=== PATIENT | male | born 1975 | race Caucasian/White ===

== ENCOUNTER 2018-12-19 22:56 | Emergency (ER) | payer SELFPAY, OTHER ==
[2018-12-20] MEDS: FAMOTIDINE 20 MG TAB PO (00:29)
[2018-12-20] MEDS: LIDOCAINE/MYLANTA 40 ML BTL PO (00:29)
[2018-12-20] MEDS: BELLADONNA/PHENOBARBITAL TAB PO (01:17)
[2018-12-20 01:18] LABS: ADD MAN DIFF? NO
[2018-12-20 01:24] LABS: WHITE BLOOD COUNT 9.3 10^3/ul (4.8-10.8)
[2018-12-20 01:24] LABS: BASOPHILS % 0.3 % (0.0-2.0); EOSINOPHILS % 0.1 % (0.0-7.0); HEMATOCRIT 41.7 % (42.0-52.0); HEMOGLOBIN 14.8 g/dl (14.0-18.0); LYMPHOCYTES # 0.7 10^3/ul (0.8-2.9); LYMPHOCYTES % 7.1 % (15.0-51.0); MEAN CORPUSCULAR HEMOGLOBIN 29.5 pg (29.0-33.0); MEAN CORPUSCULAR HGB CONC 35.5 g/dl (32.0-37.0); MEAN CORPUSCULAR VOLUME 83.2 fl (82.0-101.0); MEAN PLATELET VOLUME 10.7 fl (7.4-10.4); MONOCYTE # 0.4 10^3/ul (0.3-0.9); MONOCYTES % 4.2 % (0.0-11.0); NEUTROPHIL # 8.2 10^3/ul (1.6-7.5); PLATELET COUNT 201 10^3/UL (140-415); RED BLOOD COUNT 5.01 10^6/ul (4.70-6.10); RED CELL DISTRIBUTION WIDTH 12.2 % (11.5-14.5)
[2018-12-20 01:47] LABS: ALANINE AMINOTRANSFERASE 181 IU/L (13-69); ALBUMIN 4.4 g/dl (3.3-4.9); ALBUMIN/GLOBULIN RATIO 1.37; ALKALINE PHOSPHATASE 94 IU/L (42-121); ANION GAP 11 (5-13); ASPARTATE AMINO TRANSFERASE 352 IU/L (15-46); BILIRUBIN,INDIRECT 0.9 mg/dl (0-1.1); BILIRUBIN,TOTAL 0.9 mg/dl (0.2-1.3); BLOOD UREA NITROGEN 19 mg/dl (7-20); CALCIUM 9.2 mg/dl (8.4-10.2); CARBON DIOXIDE 26 mmol/L (21-31); CHLORIDE 105 mmol/L (97-110); CREATININE 0.65 mg/dl (0.61-1.24); Estimated GFR > 60 mL/min (>60); GLUCOSE 155 mg/dl (70-220); LIPASE 109 U/L (23-300); POTASSIUM 3.7 mmol/L (3.5-5.1); SODIUM 142 mmol/L (135-144); TOTAL PROTEIN 7.6 g/dl (6.1-8.1)
[2018-12-20] MEDS: morphine 4 MG/ML VIAL IV (01:57)
[2018-12-20] MEDS: SOD CHLORIDE 0.9% 1,000 ML IV (01:57)
[2018-12-20] MEDS: ONDANSETRON 4 MG INJ IV (01:57)
[2018-12-20 01:59] LABS: TROPONIN-I < 0.012 ng/ml (0.000-0.120)
[2018-12-20] MEDS ORDERED: SOD CHLORIDE 0.9% 100 ML (02:03)
[2018-12-20] MEDS ORDERED: IOHEXOL 100 ML (02:03)
== END 2018-12-20 03:45 | disposition home or self-care (01) ==
LOC: E/R 22:56
DX: R10.13 Epigastric pain (principal); R11.10 Vomiting, unspecified
CPT/HCPCS: 71045; 71275; 76705; 80053; 83690; 84484; 85025; 93005; 96374; 96375; 99285-25